=== PATIENT | female | born 1965 | race Caucasian/White ===

== ENCOUNTER 2020-08-01 07:52 | Outpatient (CLI) | payer BC, SELFPAY ==
--- NOTE | ~2020-08-01 | XR_ITS ---
EXAMINATION: XR foot RT min 3V EXAM DATE: 08/01/2020 08:13 INDICATION: Right foot pain, dropped can on foot. Possible ganglion cyst. TECHNIQUE: Right foot weightbearing dorsoplantar, lateral and oblique projections obtained and revie wed. Comparison is made to prior examination from 02/21/2011. FINDINGS: Right metatarsal bones unremarkable. There are small posterior and inferior calcaneal spu rs. There are sequela from old 5th metatarsal avulsion injury or injuries. There are no bony erosions identified. The joint spaces are uniform. There are no acute fractures or dislocations identified. There is no subcutaneous gas. The soft tissue is unremarkable. There are no radiopaque foreign bod ies. IMPRESSION: Small right calcaneal spurs. Reviewed, dictated and finalized at location A.
== END 2020-08-01 07:53 | disposition home or self-care (01) ==
LOC: CHSIMG 07:55
PROVIDERS: PCP Internal Medicine; Visit Provider Orthopaedic Surgery
DX: M79.671 Pain in right foot (principal)
CPT/HCPCS: 73630

== ENCOUNTER → 2020-08-22 00:12 | Outpatient (CLI) | payer BC, SELFPAY ==
[2020-08-22 19:28] LABS: SARS-CoV-2 RNA PCR Negative
== END ==
PROVIDERS: PCP Internal Medicine; Visit Provider Orthopaedic Surgery
DX: Z01.812 Encounter for preprocedural laboratory examination (principal); Z20.822 Contact with and (suspected) exposure to COVID-19
CPT/HCPCS: C9803; U0003; U0005

== ENCOUNTER 2020-08-22 08:47 | Outpatient (CLI) | payer BC, SELFPAY ==
--- NOTE | 2020-08-22 08:55 | ECG_ITS ---
Measurements Intervals [place] Rate: 70 P: 16 UT: 227 QRS: 13 QRSD: 105 T: 70 QT: 365 QTc: 396 Interpretive Statements SINUS RHYTHM WITH FIRST DEGREE AV BLOCK ANTERIOR INFARCT, AGE INDETERMINATE CONSIDER INFERIOR INFARCT, AGE INDETERMINATE BORDERLINE ST-T WAVE ABNORMALITY- HIGH LATERAL LEADS ABNORMAL ECG Electronically Signed On 08-22-2020 9:05:11 CDT by Ryne Stovall D.O.
[2020-08-22 09:32] LABS: Anion Gap 5 mmol/L (8-16); Blood Urea Nitrogen 16 mg/dL (7-17); Calcium 9.3 mg/dL (8.4-10.2); Carbon Dioxide 34 mmol/L (22-30); Chloride 99 mmol/L (98-107); Estimated Glomerular Filt Rate > 60; Glucose 173 mg/dL (65-105); Potassium 3.8 mmol/L (3.4-5.0); Sodium 138 mmol/L (137-145)
== END 2020-08-22 08:48 | disposition home or self-care (01) ==
LOC: ANHSURGERY 08:52
PROVIDERS: Anesthesiology; PCP Internal Medicine; Visit Provider Orthopaedic Surgery
DX: Z01.818 Encounter for other preprocedural examination (principal); I44.0 Atrioventricular block, first degree; I25.5 Ischemic cardiomyopathy; I10 Essential (primary) hypertension
CPT/HCPCS: 36415; 80048; 93005

== ENCOUNTER 2020-08-25 00:43 | Day surgery (SDC) | payer BC, SELFPAY ==
[2020-08-09 13:34] VITALS: BMI 44.8
--- NOTE | 2020-08-25 07:15 | WPDHPUPDATE1 ---
History and Physical Update Update Date/Time: 08/25/20 07:15 History and Physical has been reviewed, including an updated exam of the patient. There are NO changes in the patient's condition. Covid test negative Risks, benefits, and alternatives have been discussed and questions answered. Patient agrees to proceed with procedure.
[2020-08-25 09:04] VITALS: BP 150/86; PULSE 78; RESP 18; TEMP 36.3; O2SAT 98
[2020-08-25] MEDS: LACTATED RINGERS 1,000 ML 30 ML IV CONT (09:25)
[2020-08-25] MEDS: ACETAMINOPHEN 500 MG TABLET 1000 MG PO (09:31)
[2020-08-25] MEDS: KETOROLAC 15 MG/ML VIAL (*BKC) IV PUSH (09:31)
[2020-08-25 09:35] LABS: Glucose Point of Care 135 (65-105)
--- NOTE | 2020-08-25 09:53 | WPDANESEPP ---
Anes - Eval Pre Procedure Procedure: Operation Date: 08/25/20 10:45 Proposed Procedures p Excision Right Second Toe Mucoid Cyst - Elias Valencia MD Date/Time: 08/25/20 09:53 Pre Op Diagnosis: right 2nd toe mucoid cyst Patient Data Age: 55 Gender: F Height: 1.83 m Weight: 144 kg Last Vital Signs Temp 36.3 C L 08/25/20 09:04 Pulse 78 08/25/20 09:04 Resp 18 08/25/20 09:04 BP 150/86 H 08/25/20 09:04 Pulse Ox 98 08/25/20 09:04 Allergies Allergy/AdvReac Type Severity Reaction Status Date / Time cefaclor Allergy Unknown Unknown Verified 08/25/20 09:34 loratadine [From Claritin-D] Allergy Unknown hives Verified 08/25/20 09:34 pseudoephedrine Allergy Unknown hives Verified 08/25/20 09:34 [From Claritin-D] Home Medications Medication Instructions Recorded Confirmed Type duloxetine 30 mg capsule,delayed 60 mg PO QAM 08/02/20 08/25/20 History release hydrochlorothiazide 25 mg tablet 25 mg PO DAILY 08/02/20 08/25/20 History losartan 100 mg tablet 100 mg PO DAILY 08/02/20 08/25/20 History metformin 500 mg tablet 500 mg PO BID 08/02/20 08/25/20 History duloxetine 30 mg PO HS 08/09/20 08/25/20 History methylphenidate HCl 10 mg PO DAILY 08/09/20 08/25/20 History Laboratory Tests 08/25/20 09:29 POC Capillary Glucose 135 mg/dl H mg/dl (65-105) Patient hx anesthesia problems: none Family hx anesthesia problems: none PMFSH Past Medical History Medical History Depression Diabetes type 2, controlled Hearing loss Hypertension Mucoid cyst of joint Wears glasses Family History Family History Other Diabetes mellitus Hypertension Social History Social History Smoking status: Never smoker Second hand tobacco smoke exposure: No Alcohol intake: never Substance use: never Substance use type: does not use Living arrangements: with family Gender identity (if verbalized by the patient): Female Spiritual care concerns: No Exam Day of Procedure 08/25/20 09:53 Patient weight: morbidly obese Heart: regular rate and rhythm Lungs: normal air movement Airway: Mallampati scale class III Neurological: alert and oriented Other findings: DELFINA- CPAP MO
--- NOTE | 2020-08-25 09:59 | WPDANESEFPP ---
Anes - Eval Final PreProcedure Day of Procedure 08/25/20 09:59 Patient weight: morbidly obese Heart: regular rate and rhythm Lungs: clear to auscultation Airway: Mallampati scale class II Neurological: alert and oriented Last oral intake: >/= 8 hours ASA classification: III Emergent: no Anesthetic plan: proceed Anesthesia type and monitoring: general LMA and standard monitoring Informed Consent: The patient's anesthetic plan and its attendant risks and benefits were discussed with the patient/family/POA. Questions were solicited and answers provided to the satisfaction of the patient/family/POA.
[2020-08-25] MEDS: CLINDAMYCIN 900 MG/D5W 50 ML 900 MG/50 ML PIGGYBACK 50 MG IVPB (10:04)
--- NOTE | 2020-08-25 10:04 | P.OP_ITS ---
Procedure Note - Detailed Date of procedure: 08/25/20 Pre-op diagnosis: right 2nd toe mucoid cyst Post-op diagnosis: same Procedure performed: Right 2nd toe excision of mucous cyst and debridement of interphalangeal joint. Description of procedure: Indications: Patient is a 55-year-old woman with a right 2nd toe mucous cyst. She has pain associated with the cyst. No improvement with local care. Presents for operative removal. What was done: Patient identified in the preoperative holding. Informed consent given. Operative extremity marked. Patient received intravenous antibiotics. Patient brought to the operating room where underwent IV sedation by anesthesia team. Positioned supine on operating room table. Time-out performed confirming the patient, site of the surgery and the plan. Right foot prepped draped usual sterile surgical fashion using a ChloraPrep skin solution. Local anesthetic at the 2nd toe with 0.5% Marcaine plain. Longitudinal incision made over the medial aspect of the distal interphalangeal joint of the 2nd toe as the cyst was more to the medial side of the nail fold. Hemostasis controlled electrocautery. The interval between the extensor tendon and the collateral ligament was identified and the capsule was incised in this interval over the distal interphalangeal joint. Osteophyte from the distal phalanx identified and removed with a rongeur. Cystic material was identified and following this we found the cyst sac. This was opened up and debrided. The cyst stalk was then closed with electrocautery. Thorough irrigation of the wound. Skin was closed with 4 O nylon interrupted suture. Sterile dressing applied. The patient was then woken from anesthesia, extubated and taken to the recovery room in stable condition. All sponge, needle, instrument counts were correct at the end of the case. Implants: None Anesthesia: MAC and local Surgeon: Elias Valencia MD Speech And Language Specialist: 1st promotional advertising assistant Estimated blood loss (mL): 5 Tourniquet time (min): 20 Drains: No Packing: No Pathology: none sent Complications: None Condition: stable Disposition: PACU
[2020-08-25] MEDS: BUPIVACAINE HCL 0.5% PF 30 ML VIAL INFILTRATE (10:28)
[2020-08-25 10:45] VITALS: BP 139/69; PULSE 92; RESP 16; O2SAT 93
[2020-08-25 11:30] VITALS: BP 131/64; PULSE 81; RESP 16; O2SAT 100
== END 2020-08-25 12:05 | disposition home or self-care (01) ==
PROVIDERS: PCP Internal Medicine; Visit Provider Orthopaedic Surgery
PROC: (CPT 28108; principal; 2020-08-25 10:45)
DX: M25.871 Other specified joint disorders, right ankle and foot (principal); M25.774 Osteophyte, right foot; E11.9 Type 2 diabetes mellitus without complications; I10 Essential (primary) hypertension; F32.9 Major depressive disorder, single episode, unspecified; Z79.84 Long term (current) use of oral hypoglycemic drugs; E66.01 Morbid (severe) obesity due to excess calories; Z68.41 Body mass index [BMI] 40.0-44.9, adult
CPT/HCPCS: 28108; 28090; 82948; A9270; J1885; J2250; J2405; J2704; J3010; J7120

== ENCOUNTER 2021-05-02 00:43 | Day surgery (SDC) | payer BC, SELFPAY ==
[2021-04-21 14:09] VITALS: BMI 44.5
[2021-05-02 07:42] VITALS: BP 146/88; PULSE 113; RESP 20; TEMP 37.3; O2SAT 97
[2021-05-02] MEDS: LACTATED RINGERS 1,000 ML 150 ML IV CONT (07:46)
[2021-05-02 07:47] LABS: Glucose Point of Care 253 mg/dl (65-105)
--- NOTE | 2021-05-02 08:24 | P.PNAN_ITS ---
Anes - Initial Pre Proc Eval Procedure: Operation Date: 05/02/21 09:00 Proposed Procedures p Screening Colonoscopy - Niles Khan MD Date/Time: 05/02/21 08:24 Surgeon: Niles Khan MD Pre Op Diagnosis: hx of polyps Patient Data Age: 56 Gender: F Height: 1.83 m Weight: 143.6 kg Last Vital Signs Temp 99.1 F 05/02/21 07:42 Pulse 113 H 05/02/21 07:42 Resp 20 05/02/21 07:42 BP 146/88 H 05/02/21 07:42 Pulse Ox 97 05/02/21 07:42 Allergies Allergy/AdvReac Type Severity Reaction Status Date / Time cefaclor Allergy Unknown Unknown Verified 05/02/21 07:41 loratadine [From Claritin-D] Allergy Unknown hives Verified 05/02/21 07:41 pseudoephedrine Allergy Unknown hives Verified 05/02/21 07:41 [From Claritin-D] Home Medications Medication Instructions Recorded Confirmed Type duloxetine 30 mg capsule,delayed 60 mg PO QAM 08/02/20 05/02/21 History release hydrochlorothiazide 25 mg tablet 25 mg PO DAILY 08/02/20 05/02/21 History losartan 100 mg tablet 100 mg PO DAILY 08/02/20 05/02/21 History metformin 500 mg tablet 1,000 mg PO BID 08/02/20 05/02/21 History methylphenidate HCl 10 mg PO DAILY 08/09/20 05/02/21 History Laboratory Tests 05/02/21 07:45 POC Capillary Glucose 253 mg/dl H mg/dl (65-105) Patient hx anesthesia problems: none Family hx anesthesia problems: none Results Review: All pre-operative results and documents have been reviewed as part of the pre-operative evaluation. [facility] Past Medical History Medical History Depression Diabetes type 2, controlled Hearing loss Hypertension Mucoid cyst of joint Wears glasses Family History Family History Other Diabetes mellitus Hypertension Social History Social History Smoking status: Never smoker Second hand tobacco smoke exposure: No Alcohol intake: never Substance use: never Substance use type: does not use Gender identity (if verbalized by the patient): Female Spiritual care concerns: No Anes - Eval Final PreProcedure Day of Procedure 05/02/21 08:24 Patient weight: morbidly obese Heart: regular rate and rhythm Lungs: clear to auscultation Airway: Mallampati scale class II Neurological: alert and oriented Last oral intake: >/= 8 hours ASA classification: III Emergent: no Anesthetic plan: proceed Anesthesia type and monitoring: general GIVS and standard monitoring Results Review: All pre-operative results and documents have been reviewed as part of the pre-operative evaluation. Informed Consent: The patient's anesthetic plan and its attendant risks and benefits were discussed with the patient/family/POA. Questions were solicited and answers provided to the satisfaction of the patient/family/POA.
--- NOTE | 2021-05-02 08:27 | PM.HPGS ---
History of Present Illness History of Present Illness Consent: Risks, benefits, and alternatives have been discussed and questions answered. Patient agrees to proceed with procedure. Chief complaint: hx of polyps Narrative: Kaci Roberts is a 56 year old female with colon polyp 3 years ago. Review of Systems Constitutional: Constitutional: Denies headache(s) and Denies weakness Eyes: Eyes: Denies blurry vision ENT: Reports Normal hearing present, Denies headache(s) and Denies neck pain Cardiovascular: Cardiovascular: Denies chest pain and Denies dyspnea Respiratory: Respiratory: Denies dyspnea Gastrointestinal: Gastrointestinal: Reports no additional gastrointestinal complaints Genitourinary: Genitourinary: Denies dysuria Musculoskeletal: Musculoskeletal: Denies neck pain Integumentary/Breasts: Skin/Breast: Denies dry skin Neurologic: Reports Normal hearing present, Denies headache(s) and Denies weakness Psychiatric: Psychiatric: Denies anxiety Endocrine: Endocrine: Denies change in body appearance Hematologic/Lymphatic: Hematologic/Lymphatic: Denies easy bleeding Allergic/Immunologic: Allergic/Immunologic: Denies urticaria PMFSH Past Medical History Medical History (Updated 05/02/21 @ 08:28 by Niles Khan MD) Adenomatous colon polyp Depression Diabetes type 2, controlled Hearing loss Hypertension Mucoid cyst of joint Wears glasses Family History Family History Other Diabetes mellitus Hypertension Social History Social History Smoking status: Never smoker Second hand tobacco smoke exposure: No Alcohol intake: never Substance use: never Substance use type: does not use Gender identity (if verbalized by the patient): Female Spiritual care concerns: No Meds Home Medications and Allergies Home Medications Medication Instructions Recorded Confirmed Type duloxetine 30 mg capsule,delayed 60 mg PO QAM 08/02/20 05/02/21 History release hydrochlorothiazide 25 mg tablet 25 mg PO DAILY 08/02/20 05/02/21 History losartan 100 mg tablet 100 mg PO DAILY 08/02/20 05/02/21 History metformin 500 mg tablet 1,000 mg PO BID 08/02/20 05/02/21 History methylphenidate HCl 10 mg PO DAILY 08/09/20 05/02/21 History Allergies Allergy/AdvReac Type Severity Reaction Status Date / Time cefaclor Allergy Unknown Unknown Verified 05/02/21 07:41 loratadine [From Claritin-D] Allergy Unknown hives Verified 05/02/21 07:41 pseudoephedrine Allergy Unknown hives Verified 05/02/21 07:41 [From Claritin-D] Vital Signs Vital Signs - 24 hr 05/02/21 07:42 Temperature 99.1 F Pulse Rate 113 H Respiratory Rate 20 Blood Pressure 146/88 H Pulse Oximetry 97 Exam Const: General: comfortable and no acute distress HENMT: General nose exam: Normal nares present Eyes: General: appearance normal, both eyes and all related structures Neck: Neck: no JVD Resp: Auscultation: clear to auscultation bilaterally Cardio: Rate: regular rate Rhythm: regular rhythm GI: Inspection: non-distended GI Palp: Yes Soft to palpation Skin: General skin exam: normal color Neuro: General: gait normal Speech: normal speech Extrem: General: normal to inspection Psych: Mental Status: mental status grossly normal Assessment and Plan Assessment and plan (1) Adenomatous colon polyp: Code(s): D12.6 - Benign neoplasm of colon, unspecified Status: Acute Assessment and Plan: colonoscopy
[2021-05-02 08:50] VITALS: BP 135/82; PULSE 100; RESP 25; O2SAT 95
[2021-05-02 09:00] VITALS: BP 135/84; PULSE 102; RESP 23; O2SAT 96
[2021-05-02 09:10] VITALS: BP 146/85; PULSE 88; RESP 22; O2SAT 97
== END 2021-05-02 09:14 | disposition home or self-care (01) ==
PROVIDERS: PCP Internal Medicine; Visit Provider Internal Medicine Gastroenterology
PROC: 0DJD8ZZ Inspection of Lower Intestinal Tract, Via Natural or Artificial Opening Endoscopic (ICD-10-PCS; CPT 45378; principal; 2021-05-02 09:00)
DX: Z12.11 Encounter for screening for malignant neoplasm of colon (principal); Z86.010 Personal history of colon polyps; K64.8 Other hemorrhoids; F32.9 Major depressive disorder, single episode, unspecified; E11.9 Type 2 diabetes mellitus without complications; I10 Essential (primary) hypertension; H91.90 Unspecified hearing loss, unspecified ear; Z79.84 Long term (current) use of oral hypoglycemic drugs; E66.01 Morbid (severe) obesity due to excess calories; Z68.41 Body mass index [BMI] 40.0-44.9, adult
CPT/HCPCS: 45378; 82948; J2704; J7120

== ENCOUNTER 2023-10-21 08:16 | Outpatient (CLI) | payer BC, SELFPAY ==
--- NOTE | ~2023-10-21 | XR_ITS ---
EXAMINATION: XR ankle RT min 3V DATE: 10/21/2023 08:36 INDICATION: Right ankle pain. TECHNIQUE: 4 views of right ankle were obtained. COMPARISON: Right foot radiographs 08/01/2020 FINDINGS: Bone alignment is normal. There is heterotopic ossification distal to medial and lateral ma lleoli. Joint spaces are normal. There are enthesophytes at the posterior and plantar aspects of calc aneal tuberosity. Ankle soft tissue swelling is noted. IMPRESSION: 1. 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 Acute avulsion fracture cannot be excluded. Reviewed, dictated and finalized at location A. IMPRESSION: 1. Heterotopic ossification distal to medial and lateral malleoli, at least nathan e of which is chronic. Acute avulsion fracture cannot be excluded.
== END 2023-10-21 08:17 | disposition home or self-care (01) ==
PROVIDERS: PCP Internal Medicine; Visit Provider Orthopaedic Surgery
DX: M25.571 Pain in right ankle and joints of right foot (principal); M89.9 Disorder of bone, unspecified
CPT/HCPCS: 73610

== ENCOUNTER 2024-02-12 15:31 | Outpatient (RCR) | payer BC, SELFPAY ==
--- NOTE | 2024-02-12 16:43 | OPREHPOC ---
Outpatient Therapy Plan of Care This is a Multidisciplinary Plan of Care that may contain components documented by all disciplines (PT, OT, and ST.) PT Problem 1 PT Problem #1 Knowledge Deficit PT Goal 1 Goal / Goal Update The patient will be independent in a home exercise program to continue after discharge from formal PT. Target Visit 4 PT Problem 2 PT Problem #2 Pain PT Goal 1 Goal / Goal Update The patient will report no greater than 2/10 right knee pain with walking for up to 30 minutes to complete grocery shopping. Target Visit 10 PT Problem 3 PT Problem #3 Impaired Functional Mobil PT Goal 1 Goal / Goal Update The patient will demonstrate 10% or less self perceived disability per the LEFS questionnaire. The patient will be able to complete 1,000 feet during the 6 minute walk test without right knee pain. Target Visit 10 PT Problem 4 PT Problem #4 Impaired Strength PT Goal 1 Goal / Goal Update The patient will demonstrate at least 4/5 right knee and hip strength.
--- NOTE | 2024-02-12 16:43 | PTOPEVAL1 ---
Assessment and note entered by Luci Marin, PT Evaluation Information Assessment Status Evaluation ICD-10 Condition Codes (PT) M25.561 Onset 02/11/24 Subjective Information Kaci Roberts reports she fell in September 2023 and fractured her ankle and strained her knee. 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 She feels being on concrete and standing has made her pain return. She feels pain on the inner knee that comes and goes. She notes pain with initial standing after prolonged sitting and getting out of bed as well as walking for a long period. She feels pain after 10 minutes of walking . When she went to doctor, she had x-rays that showed osteoarthritis. Dr. Trimble referred her to PT and recommended she takes Aleve. She will get a cortisone injection if pain does not improve. Reported Pain Level Pain Score 2: Self Report Assessment PT Clinical Summary Kaci Roberts presents with right knee pain that started after a fall in September 2023. 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 She has difficulty with initial standing after laying or prolonged sitting as well as walking more than 10 minutes. She objectively demonstrates tenderness along the medial patella border, right > left genu valgum, bilateral lateral patella tracking, and decreased right knee and hip strength. She will benefit from skilled PT to address these limitations. Plan of Care Interventions Electrical Stimulation,Hot Pack/Cold Pack, Intermittent Compression,Manual Therapy,Neuro Re- education,Patient/Caregiver Educati,Therapeutic Activities,Therapeutic Exercise PT Services Indicated Yes Treatment Frequency and 2 times a week for 10 visits Duration These treatments will address the objective and functional deficits as defined above. The patient will be advanced safely and appropriately in order for the patient to progress towards his/her prior level of function. Additional exercises will be introduced and as well as a comprehensive home exercise program upon discharge, if needed, ?to ensure carryover of functional gains achieved in the clinic. This treatment plan has been reviewed and agreement upon by the patient.
--- NOTE | 2024-03-15 14:21 | OPREHPOC ---
Outpatient Therapy Plan of Care This is a Multidisciplinary Plan of Care that may contain components documented by all disciplines (PT, OT, and ST.) PT Problem 1 PT Problem #1 Knowledge Deficit PT Goal 1 Goal / Goal Update The patient will be independent in a home exercise program to continue after discharge from formal PT. Target Visit 4 Progress Met PT Problem 2 PT Problem #2 Pain PT Goal 1 Goal / Goal Update The patient will report no greater than 2/10 right knee pain with walking for up to 30 minutes to complete grocery shopping. Target Visit 14 Progress Not Met PT Problem 3 PT Problem #3 Impaired Functional Mobil PT Goal 1 Goal / Goal Update The patient will demonstrate 10% or less self perceived disability per the LEFS questionnaire. The patient will be able to complete 1,000 feet during the 6 minute walk test without right knee pain. met for distance Target Visit 14 Progress Not Met PT Problem 4 PT Problem #4 Impaired Strength PT Goal 1 Goal / Goal Update The patient will demonstrate at least 4/5 right knee and hip strength. met The patient will demonstrate 4+/5 or better R hip strength overall. The patient will demonstrate 5/5 R knee strength Target Visit 14 Progress Partially Met
--- NOTE | 2024-03-15 14:21 | PTOPREEVAL ---
Assessment and note entered by JT File, PT Evaluation Information Assessment Status Re-evaluation ICD-10 Condition Codes (PT) M25.561 Onset 02/11/24 Subjective Information kalen reports she was doing much better for a while, but just recently began having pain again in the R knee. she reports she is limited in ambulation for increased time/distance, and limited on steps. she reports her return of pain and symptoms leads her to want to continue skilled PT. Reported Pain Level Pain Score 3: Self Report Assessment PT Clinical Summary mrs. alcantar presents to skilled PT services for her 10th skilled PT visit. she has been improving with skilled PT, but recently had a flare up of pain and symptoms in the R knee. she has made progress towards goals, but due to her recent flare up, has not achieved all goals yet. she would benefit from continued skilled PT to address her flare up of symptoms to achieve all goals and return to prior level functional activity performance/ quality of life. Plan of Care Interventions Electrical Stimulation,Hot Pack/Cold Pack, Intermittent Compression,Manual Therapy,Neuro Re- education,Patient/Caregiver Educati,Therapeutic Activities,Therapeutic Exercise PT Services Indicated Yes Treatment Frequency and continue skilled PT 2x weekly for 4 more visits Duration These treatments will address the objective and functional deficits as defined above. The patient will be advanced safely and appropriately in order for the patient to progress towards his/her prior level of function. Additional exercises will be introduced and as well as a comprehensive home exercise program upon discharge, if needed, ?to ensure carryover of functional gains achieved in the clinic. This treatment plan has been reviewed and agreement upon by the patient.
--- NOTE | 2024-03-25 16:02 | OPREHPOC ---
Outpatient Therapy Plan of Care This is a Multidisciplinary Plan of Care that may contain components documented by all disciplines (PT, OT, and ST.) PT Problem 1 PT Problem #1 Knowledge Deficit PT Goal 1 Goal / Goal Update The patient will be independent in a home exercise program to continue after discharge from formal PT. Target Visit 4 Progress Met PT Problem 2 PT Problem #2 Pain PT Goal 1 Goal / Goal Update The patient will report no greater than 2/10 right knee pain with walking for up to 30 minutes to complete grocery shopping. Target Visit 14 Progress Met PT Problem 3 PT Problem #3 Impaired Functional Mobil PT Goal 1 Goal / Goal Update The patient will demonstrate 10% or less self perceived disability per the LEFS questionnaire. The patient will be able to complete 1,000 feet during the 6 minute walk test without right knee pain. met for distance Target Visit 14 Progress Met PT Problem 4 PT Problem #4 Impaired Strength PT Goal 1 Goal / Goal Update The patient will demonstrate at least 4/5 right knee and hip strength. met The patient will demonstrate 4+/5 or better R hip strength overall. The patient will demonstrate 5/5 R knee strength Target Visit 14 Progress Met
--- NOTE | 2024-03-25 16:02 | PTOPDC ---
Assessment and note entered by Luci Marin, PT Evaluation Information Assessment Status Discharge ICD-10 Condition Codes (PT) M25.561 Onset 02/11/24 Subjective Information Kaci Roberts reports that her right knee is doing better. She is able to perform all daily activities including grocery shopping, taking stairs reciprocally, and sit and standing as long as she needs for daily activities. She has not been having right knee or ankle pain recently. Reported Pain Level Pain Score 0: Self Report Assessment PT Clinical Summary Kaci Roberts has completed 14 skilled PT visits for right knee pain. She is reporting her right knee is doing better and has not given her very much pain. She has been able to return to walking longer distances to go grocery shopping, taking stairs reciprocally, and sit and stand for as long as she needs to for daily activities. She objectively demonstrates improved right knee AROM, improved right knee and hip strength, improved endurance, and improved gait. She will be discharged from skilled PT. Plan of Care PT Services Indicated No
== END 2024-03-25 16:15 | disposition home or self-care (01) ==
LOC: CHSPT 15:31
PROVIDERS: Visit Provider Orthopaedic Surgery
DX: S80.01XA Contusion of right knee, initial encounter (principal); M17.11 Unilateral primary osteoarthritis, right knee
CPT/HCPCS: 97110; 97112; 97150; 97161; 97750

== ENCOUNTER 2024-05-03 10:22 | Emergency (ER) | payer BC, SELFPAY ==
--- NOTE | ~2024-05-03 | XR_ITS ---
Left Knee Technique: AP, lateral, and oblique views were obtained. Clinical History: Pain Findings: No fracture or dislocation is seen. Osseous alignment is anatomic. Joint there is moderate degenerative change throughout the knee, probably worst at the patellofemoral compartment. Soft tissu es are unremarkable. No joint effusion is seen. Impression: Degenerative changes, as above. No acute fracture or dislocation. Reviewed, dictated and finalized at location . LE COVERER Impression: Degenerative changes, as above. No acute fracture or dislocation.
[2024-05-03 10:22] VITALS: BP 190/67; PULSE 109; RESP 19; TEMP 36.4; O2SAT 98
--- NOTE | 2024-05-03 10:49 | ED_ITS ---
HPI - Extremity Injury (Lower) General Chief Complaint: Extremity Injury, Lower Stated Complaint: fall Time Seen by Provider: 05/03/24 10:45 Source: patient Mode of arrival: ambulatory Limitations: no limitations History of Present Illness HPI Narrative: patient drove herself to the emergency room complaining of left knee pain anteriorly, lost balance and landed on the left knee ground level fall last night. Denies other injuries. Related Data Home Medications ?Medication ?Instructions ?Recorded ?Confirmed ?Last Taken ?Type losartan 100 mg tablet 50 mg PO DAILY 08/02/20 10/21/23 Unknown History atomoxetine 40 mg capsule 40 mg PO DAILY 05/03/24 Unknown History empagliflozin 10 mg tablet 10 mg PO DAILY 05/03/24 Unknown History (Jardiance) mirabegron 50 mg tablet,extended 50 mg PO DAILY 05/03/24 Unknown History release 24 hr (Myrbetriq) potassium chloride 10 mEq 10 meq PO DAILY 05/03/24 Unknown History tablet,extended release Allergies Allergy/AdvReac Type Severity Reaction Status Date / Time atorvastatin Allergy Intermediate Unknown Verified 05/03/24 10:44 cefaclor Allergy Unknown Unknown Verified 02/11/24 09:45 loratadine (From Claritin-D) Allergy Unknown hives Verified 02/11/24 09:45 pseudoephedrine (From Allergy Unknown hives Verified 02/11/24 09:45 Claritin-D) Review of Systems Review of Systems: All systems reviewed & are unremarkable except as noted in HPI and below PMFSH Past Medical History Medical History Contusion of right knee Avulsion fracture of lateral malleolus of right fibula Adenomatous colon polyp Depression Diabetes type 2, controlled Hypertension Hearing loss Wears glasses Mucoid cyst of joint Family History Family History Other Diabetes mellitus Hypertension Social History Social History Smoking status: Never smoker Second hand tobacco smoke exposure: No Alcohol intake: never Substance use: never Substance use type: does not use Living arrangements: with family Gender identity (if verbalized by the patient): Female Spiritual care concerns: No Exam Narrative: General appearance: Well-developed, well-nourished Skin: Normal color Head: Normocephalic, nontraumatic Eyes: Clear conjunctiva ENT: Oropharynx normal, ears normal, nose normal Neck: Supple, nontender Chest and respiratory: Airway patent, no respiratory distress, no accessory muscle use Heart: Regular rate/rhythm Vascular: Normal peripheral pulses, normal capillary refill. 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 is normal as tested, no gross motor deficit Course Vital Signs Vital signs: Vital Signs Temperature 36.4 C 05/03/24 10:22 Pulse Rate 109 H 05/03/24 10:22 Respiratory Rate 19 05/03/24 10:22 Blood Pressure 190/67 H 05/03/24 10:22 Pulse Oximetry 98 05/03/24 10:22 Oxygen Delivery Room Air 05/03/24 10:22 Temperature 36.3 C L 05/03/24 12:11 Pulse Rate 89 05/03/24 12:15 Respiratory Rate 18 05/03/24 12:11 Blood Pressure 173/73 H 05/03/24 12:15 Pulse Oximetry 97 05/03/24 12:11 Oxygen Delivery Room Air 05/03/24 12:11 MDM - Extremity Injury (Lower) MDM Narrative Medical decision making narrative: differential diagnosis include the patellar fracture, contusion Imaging Data Radiologist's impression: Impressions Knee X-Ray 05/03/24 11:21 Impression: Degenerative changes, as above. No acute fracture or dislocation. Critical Care Time Critical Care Time Critical Care Time: No Discharge Plan Discharge Clinical Impression: Contusion of knee, left, Hypertension Patient Disposition: Home, Self-Care Condition: Stable Instructions: Contusion in Adults (ED), Hypertension (ED) Additional Instructions: Return if symptoms are worsening , call your family physician for appointment, take Tylenol , ibuprofen as as needed for aches and pain, continue home medications. Keep leg elevated, topical Neosporin Patient Language: Filipino Prescriptions: No Action potassium chloride 10 mEq tablet extended release 10 meq PO DAILY mirabegron [Myrbetriq] 50 mg tablet extended release 24 hr 50 mg PO DAILY Jardiance 10 mg tablet 10 mg PO DAILY atomoxetine 40 mg capsule 40 mg PO DAILY losartan 100 mg tablet 50 mg PO DAILY Follow-up/Referrals: UNKNOWN,DOCTOR [Non-Staff] - Stand Alone Forms: Work/School Release IP
[2024-05-03 11:40] VITALS: BP 190/89; PULSE 96; RESP 18; TEMP 36.7; O2SAT 96
[2024-05-03] MEDS: cloNIDine HCL 0.1 MG TABLET PO (11:43)
[2024-05-03 12:11] VITALS: BP 173/73; PULSE 89; RESP 18; TEMP 36.3; O2SAT 97
[2024-05-03 12:15] VITALS: BP 173/73; PULSE 89
--- OUTSIDE RECORDS SUMMARY | 2024-05-07 21:59 | XMS_ITS | Data Portability ---
Author Organization [facility], [address] [facility] ([place]) Address [address] 4th [place] [address] Care Team Providers Care Supervisor Dry Paste Name Role Phone HYACINTH MOY Primary Care Provider [phone] MITCHEL DELA CRUZ Urologist MONIKA RICHARDS OTHER Assessment Encounter Date Assessment Date Assessment LastModified by Organization Details LastModified Time 12/12/2023 12/12/2023 Probable viral illness with sinusitis and facial tenderness and pain. We will start her on doxycycline antibiotic therapy. We talked about the risk and benefits. She is to gargle salt water get plenty of fluids and rest. She is to notify me if her symptoms or not improving. ADHD. Continue Strattera which is working well for her. I will see her back in 3 months for follow-up on the Strattera. She agrees with this plan. She knows to call with any worsening symptoms. Total time 20 minutes [email or web address] Not available 12/15/2023 22:09:25 12/20/2023 12/20/2023 1. COVID-19. She has had it for about 2 days. Will start her on she is to call or go to the emergency department if things get worse. 2. Hypertension not well-controlled . Increase losartan to 100 mg. She will return in about a month for thorough physical for this time of year. She agrees with this plan. Total time 15 minutes Not available 12/22/2023 13:57:21 01/15/2024 01/15/2024 1. Right knee pain. She fell in September and did not get it x-rayed. Will get an x-ray today to make sure there is no tibial plateau fracture. 2. Type 2 diabetes. Will check hemoglobin A1c today. She has regained 40 pounds that she has lost. We were able to stop her diabetes medication with the weight loss she had had. 3. Urinary incontinence and urge incontinence. Start oxybutynin ER grams. We talked about the risk and benefits of this including dry mouth. 4. Essential hypertension. Resume losartan but at a lower dose of 50 mg. 5. She is due for routine screening mammogram and an order is sent to [facility] 6. ADHD. Continue Strattera which is working well. I will see her back in 3 months or as needed for follow-up. She knows to call with any concerns. She agrees with this plan. Total 30 minutes [email or web address] Not available 01/15/2024 23:24:23 03/24/2024 03/24/2024 Ms. Roberts was seen for her 6-month hearing aid check. She wears 2 [employer] Lumity rechargeable hearing devices. I removed 3.3 uL of moisture from both hearing aids. I changed her cap domes, wax traps, and retention lines. Rec: 1. Return in six months for her next check. 2. Both hearing aids are currently under warranty. matt Not available 03/24/2024 17:37:43 03/30/2024 03/30/2024 1. ADHD. Continue Strattera which is working well without any side effects. I will see her back in 3 months for follow-up on this. 2. We did review her labs for diabetes. She would like to get back on Jardiance which helped her lose weight. Will start at 10 mg 1 tablet daily and then we can increase it as she tolerates as well. 3. Right knee pain. She continues to work on conservative measures for this. I did suggest she could try some diclofenac gel and gave her the name of this. 4. Obesity. She has started to work on weight loss and has regained some of the weight. I encouraged her to get back on track with exercise program. I recommended that she read the book called eat to live by Dr. Luis Landers. I will see her back in 3 months. She agrees with this plan. Total amount of time 20 minutes Not available 03/31/2024 21:16:47 Plan of Treatment Reminders Order Date Submit Date Provider Last Modified By Organization Details Last Modified Time Details Appointments [facility] Patient 15.EST 2024 10:30A M Dr. Hyacinth Lopez Not available Not available Not available Carlos swann Patient 30.EST 2024 10:30A M Vero Lopes Not available Not available Not available Lab hemoglob in A1C, fingerst ick 2023 024 [facility], [address] [place] [address], [address], 01/15/2024 17:25:34 Referral None recorded . Procedures None recorded . Surgeries None recorded . Imaging XR, knee, 3 view - right knee 2023 [facility] - Radiology Scheduling, [address] [place], [address], 01/23/2024 11:43:50 MAMMO, screenin g, digital, bilatera l 2023 [facility]7 [facility] Radiology Scheduling, [address] [place], [address], 03/13/2024 14:56:35 Medication Orders doxycycl ine monohydr ate 100 mg capsule 2023 024 [facility]94507, [address] [place], [place], [id number], 01/15/2024 16:51:21 atomoxet ine 40 mg capsule 2023 024 [facility]20967, [address] [place], [place], [id number], 12/12/2023 17:52:13 losartan 100 mg tablet 2023 024 [facility] #47498, [address] [place], [place], [id number], 01/15/2024 17:16:22 Paxlovid 300 mg (150 mg x 2)-100 mg tablets in a dose pack 2023 [facility] #69949, [address] [place], [place], [id number], 01/15/2024 16:51:27 oxybutyn in chloride ER 5 mg tablet,e xtended release 24 hr 2023 [facility] #90040, [address] [place], [place], [id number], 03/30/2024 16:45:55 losartan 50 mg tablet 2023 024 [facility] #04749, [address] [place], [place], [id number], 01/15/2024 17:15:56 Jardianc e 10 mg tablet 2023 024 [facility] #67045, [address] [place], [place], [id number], 03/30/2024 16:59:42 Patient TargetsNo targets recorded. Patient InstructionsNo instructions recorded. Reason for Referral None Reported. Results Created Date Observation Date Name Description Value Unit Range Abnormal Flag Note LastModifiedBy Organization Detail LastModifiedTime 12/12/19 24 12/12/2023 SARS CoV 2 RNA, QL, SOTO+p robe, nose covid-19, rapid NEGATI VE negati ve Covid -19 assay perfo rmed on the ID now instr ument is a rapid molec ular in vitro diagn ostic test utili zing an isoth ermal nucle ic acid ampli ficat ion techn ology inten ded for the quali tativ e detec tion of nucle ic acid from SARS- CoV-2 in direc t anter ior nasal or nasop haryn geal swab speci mens from indiv idual s who are suspe cted of COVID -19 by their healt hcare provi donavon withi n the first seven days of the onset of sympt oms. Not Available [facility] [address] [place] [address], [address], 12/12/2023 17:37:44 12/20/19 24 12/20/2023 SARS CoV 2 RNA, QL, SOTO+p robe, nose covid-19, rapid POSITI VE negati ve abnormal Covid -19 assay perfo rmed on the ID now instr ument is a rapid molec ular in vitro diagn ostic test utili zing an isoth ermal nucle ic acid ampli ficat ion techn ology inten ded for the quali tativ e detec tion of nucle ic acid from SARS- CoV-2 in direc t anter ior nasal or nasop haryn geal swab speci mens from indiv idual s who are suspe cted of COVID -19 by their healt hcare provi donavon withi n the first seven days of the onset of sympt oms. Not Available [facility] [address] [place] [address], [address], 12/20/2023 11:42:11 01/15/20 24 01/15/2024 hemog lobin A1C, finge rstic k fingerstick A1C endo Not Available [facility] [address] [place] [address], [address], 01/15/2024 17:25:33 01/15/20 24 01/15/2024 hemog lobin A1C, finge rstic k hemoglobin A1C, finger 6.7 %_A1C 4.3 - 5.6 high Not Available [facility] [address] [place] [address], [address], 01/15/2024 17:25:33 01/15/20 24 01/15/2024 hemog lobin A1C, finge rstic k fingerstick estimated [address] Not Available [facility] [address] [place] [address], [address], 01/15/2024 17:25:33 03/13/2003/09/2024 MAMMO , scree marj, digit al, bilat eral No observ ation record ed. [email or web address] [facility] Radiology Scheduling [address] [place], [address], 03/13/2024 17:34:10 03/17/20 24 07/26/2023 imagi ng/di agnos tic resul t No observ ation record ed. [email or web address] Not Available 21:49:06 03/17/2010/21/2023 imagi ng/di agnos tic resul t No observ ation record ed. [email or web address] Not Available 21:49:12 Result Notes None recorded. Problems Name Problem SNOMED Code Status Onset Date Resolution Date Notes Provider Name and Address Organization Details Recorded Time Hypertens isa disorder 12377918 Active 2023 Hetal Aaron [facility] 4 22:16:37 COVID-19 321609043 Completed 202301/15/2024 Mariella Vásquez [facility] 4 16:51:53 Pain of right knee joint 65692291504 4100 Active 2023 Hyacinth Lopez MD [address] [place] [address], [phone] , [facility] 4 17:09:23 Type 2 diabetes mellitus 63063233 Active 2023 Hetal Aaron [facility] 4 22:16:45 Increased frequency of urination 074418507 Active 2023 Hyacinth Lopez MD [address] [place] [address], [phone] , [facility] 4 17:13:11 Sensorine ural hearing loss of bilateral ears 001591253 Active 2023 Hetal Rosenbaumt [facility] 4 22:16:48 Obstructi ve sleep apnea of adult 98556607651 03 Active 2023 [facility] 4 22:16:41 Attention deficit hyperacti vity disorder, predomina ntly inattenti ve type 22986732 Active 2023 [facility] 4 22:16:33 Fever 827636806 Completed 202301/15/2024 Mariella Vásquez [facility] 4 16:52:01 Problem Notes None recorded. Procedures Surgical History Date Name Laterality Status Provider Name and Address Organization Details Recorded Time colonoscopy completed [facility] 03/29/2024 22:17:29 Imaging Results Imaging Date Name Status LastModified by Organiz ation Details LastModified Time 03/09/2024 MAMMO, screening, digital, bilateral completed [email or web address] [facility] Radiology Scheduling [address] [facility], [place], [address], 03/13/2024 17:34:10 07/26/2023 imaging/diagno stic result completed Information not available 03/17/2024 21:49:06 10/21/2023 imaging/diagno stic result completed Information not available 03/17/2024 21:49:12 Procedure Notes None recorded. Medical Equipment None Reported. Allergies Allergen ID Allergen Name Allergen Category Reaction Reaction Severity Criticality Documentation Date Start Date Code Code System Note Provider Name and Address Organization Details Recorded Time [id number] d6566 Claritin medicatio n dizziness Not available Not available 06/19/2023200557 6 RxNorm React ion: Dizzi ness; Not Available Not Available Not Available [id number] c5399 rosuvasta tin calcium medicatio n myalgias (muscle pain) Not available Not available 06/17/20232020 89936 8 RxNorm React ion: Myalg ia; Not Available Not Available Not Available [id number] 35c0f [facility] medicatio n rash Not available Not available 06/17/20232005 91630 5 RxNorm React ion: Rash; Not Available Not Available Not Available Medications Name Sig Start Date Stop Date Status Note LastModified by Organization Details LastModified Time losartan 50 mg tablet TAKE 1 TABLET BY MOUTH EVERY DAY active Not Available Not Available No t Available methylpheni date 20 mg tablet TAKE 1 TABLET BY MOUTH EVERY DAY 12/19 completed Not Available Not Available Not Available prednisone 20 mg tablet TAKE 3 TABLETS BY MOUTH DAILY FOR 3 DAYS THEN TAKE 2 TABLETS BY MOUTH DAILY FOR 3 DAYS THEN TAKE 1 TABLET BY MOUTH DAILY FOR 3 DAYS 12/19 completed Not Available Not Available Not Available potassium chloride ER 10 mEq tablet,exte nded release TAKE 1 TABLET BY MOUTH EVERY DAY active Not Available Not Available No t Available doxycycline monohydrate 100 mg capsule TAKE 1 CAPSULE BY MOUTH TWICE DAILY FOR 10 DAYS 01/14 completed Not Available Not Available Not Available methylpheni date ER 20 mg tablet,exte nded release TAKE 1 TABLET BY MOUTH DAILY 12/11 completed Not Available Not Available Not Available oxybutynin chloride ER 5 mg tablet,exte nded release 24 hr TAKE 1 TABLET BY MOUTH EVERY DAY 03/30 completed Not Available Not Available Not Available hydrochloro thiazide 25 mg tablet TAKE 1 TABLET BY MOUTH DAILY 12/11 completed Not Available Not Available Not Available losartan 100 mg tablet TAKE 1 TABLET BY MOUTH EVERY DAY 01/14 completed Not Available Not Available Not Available tobramycin 0.3 %-dexametha sone 0.1 % eye drops,suspe nsion SHAKE LIQUID AND INSTILL 1 DROP IN LEFT EYE FOUR TIMES DAILY DIRECTED 12/11 completed Not Available Not Available Not Available atomoxetine 40 mg capsule TAKE 1 CAPSULE BY MOUTH EVERY DAY active Not Available Not Available No t Available Myrbetriq 50 mg tablet,exte nded release TAKE 1 TABLET BY MOUTH ONCE DAILY active Not Available Not Available No t Available Jardiance 10 mg tablet Take 1 tablet every day by oral route. 2023 active Not Available Not Available Not Avai lable Paxlovid 300 mg (150 mg x 2)-100 mg tablets in a dose pack TK 2 NIRMATREL VIR TS AND 1 RITONAVIR T TOGETHER PO BID FOR 5 DAYS 01/14 completed Not Available Not Available Not Available Vitals Date Recorded Body weight Oxygen saturation Oxygen saturation in Arterial blood by Pulse oximetry Heart rate Body temperature Systolic blood pressure Diastolic blood pressure Provider Name and Address Organization Details Last Updated DateTime 4 993159. 72 g 97 % 97 % 129 /min 99.2 [degF] 126 mm[Hg] 82 mm[Hg] [facility] 4 17:27:32 Date Recorded Body weight Body temperature Heart rate Systolic blood pressure Diastolic blood pressure Provider Name and Address Organization Details Last Updated DateTime 12/20/2023 552743. 93 g 99.1 [degF] 68 /min 132 mm[Hg] 64 mm[Hg] Monica Kaur [facility] 4 10:03:53 Date Recorded Body height Body mass index (BMI) Body weight Body temperature Heart rate Oxygen saturation Oxygen saturation in Arterial blood by Pulse oximetry Systolic blood pressure Diastolic blood pressure Provider Name and Address Organization Details Last Updated DateTime 4 182.88 cm 41 kg/m2 008471. 9 g 97.3 [degF] 98 /min 100 % 100 % 132 mm[Hg] 74 mm[Hg] Mariella Vásquez [facility] 4 16:50:46 Date Recorded Body height Body mass index (BMI) Body weight Body temperature Oxygen saturation Oxygen saturation in Arterial blood by Pulse oximetry Heart rate Systolic blood pressure Diastolic blood pressure Provider Name and Address Organization Details Last Updated DateTime 4 182.88 cm 42.9 kg/m2 850246. 91 g 96.8 [degF] 97 % 97 % 103 /min 122 mm[Hg] 68 mm[Hg] [facility] 4 16:45:29 Social History Question Answer Notes LastModified by Organizat ion Details LastModified Time Do You Have An Advance Directive? No [email or web address] Information not available 12/13/2023 What Is Your Level Of Alcohol Consumption? None [email or web address] Information not available 12/13/2023 What Is Your Level Of Caffeine Consumption? Occasional [email or web address] Information not available 12/13/2023 Are You Currently Employed? 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 Less Than 1 Time Per Week [email or web address] Information not available 12/13/2023 Do You Have A Medical Power Of Healthcare Interpreter? Yes [email or web address] Information not available 12/13/2023 What Was The Date Of Your Most Recent Tobacco Screening? 12/20/2023 [email or web address] Information not available 12/13/2023 What Is Your Relationship Status? Single [email or web address] Information not available 12/13/2023 Do You Use Any Illicit Or Recreational Drugs? No [email or web address] Information not available 12/13/2023 Sex: Unknown Functional Status Question Answer Note LastModified by Organizat ion Details LastModified Time What is your exercise level? Occasional [email or web address] Information not available 12/13/2023 Mental Status None recorded. Family History Relationship Description Onset Age of this Age Resolved Age Notes LastModified by Organization Details LastModified Time Sister Arthritis [email or web address] Not available 12/13/2023 10:22:38 Sister Diabetes mellitus [email or web address] Not available 2023 10:22:38 Sister Hypertensive disorder [email or web address] Not available 2023 10:22:38 Sister Hypercholest erolemia [email or web address] Not available 2023 10:22:38 Mother Diabetes mellitus [email or web address] Not available 2023 10:22:39 Father Diabetes mellitus [email or web address] Not available 2023 10:22:39 Father Hypertensive disorder [email or web address] Not available 2023 10:22:39 Notes:Sister has arthritis S ister has diabetes Sister has high blood pressure Sister has high cholesterol Sister has histoplasmosis Medical History Condition Response Diabetes Y Anxiety Disorder N Bleeding Disorder N Attention-deficit Hyperactivity Disorder Y High Blood Pressure Y Arthritis N Hyperlipidemia N Cancer N Stroke N Thyroid Problems N Asthma N Depression Y COPD N Anemia N Seizures N Heart Disease N Fibromyalgia N Osteoporosis N Kidney Disease N Gynecological HistoryNo gynecological history recorded. Obstetrics History GPAL:G 0 P 0 0 0 0 Immunizations Vaccine Type Date Status Note Provider Nam e and Address Organization Details Recorded Time MMR 4 completed [facility] 12/20/2023 10:01:13 COVID-19, mRNA, LNP-S, PF, 30 mcg/0.3 mL dose 1 completed [facility] 12/20/2023 10:01:13 COVID-19, mRNA, LNP-S, PF, 30 mcg/0.3 mL dose 1 completed [facility] 12/20/2023 10:01:13 DTP 8 completed [facility] 12/20/2023 10:01:13 DTP 2 completed [facility] 12/20/2023 10:01:13 Influenza, split virus, trivalent, preservative 0 completed [facility] 12/20/2023 10:01:13 Td (adult), 2 Lf tetanus toxoid, preservative free, adsorbed 3 completed [facility] 12/20/2023 10:01:13 Td (adult), 2 Lf tetanus toxoid, preservative free, adsorbed 7 completed [facility] 12/20/2023 10:01:13 Td (adult), 2 Lf tetanus toxoid, preservative free, adsorbed 8 completed [facility] 12/20/2023 10:01:13 Hep B, adolescent or pediatric 4 completed [facility] 12/20/2023 10:01:13 Hep B, adolescent or pediatric 3 completed [facility] 12/20/2023 10:01:13 Past Encounters Encounter ID Performer Location Encounter Start Date Encounter Closed Date Diagnosis/Indication Diagnosis SNOMED-CT Code Diagnosis ICD10 Code [id number] Hyacinth Lopez MD [facility] [address] 12/12/2023 17:09:10 12/16/2023 04:11:36 Acute sinusitis 03616158 J01.90 Attention deficit hyperactivity disorder, predominantly inattentive type 92356732 F90.0 [id number] MD [facility] [place] [address] 12/20/2023 09:57:37 12/23/2023 04:55:59 Hypertensive disorder 74551730 I10 COVID-19 757805658 U07.1 [id number] Hyacinth Lopez MD [facility] ([place] [address] 01/15/2024 16:23:19 01/15/2024 17:51:42 Pain of right knee joint 3437803643 47709 M25.561 Type 2 bayron betes mellitus 65575506 E11.9 Increased frequency of urination 655186050 R35.0 Hypertensive disorder 38 681799 I10 Screening mammography of bilateral breasts 1677189706 95245 Z12.31 Attention deficit hyperactivity disorder, predominantly inattentive type 10744186 F90.0 [id number] Marina Hernandez [facility] 4th Audiology [address] [facility] [place] [address] 03/24/2024 16:33:48 03/24/2024 17:28:55 Sensorineural hearing loss of bilateral ears 059266158 H90.3 [id number] MD João [facility] [address] 03/30/2024 16:34:32 03/30/2024 17:37:16 Attention deficit hyperactivity disorder, predominantly inattentive type 42599295 F90.0 Type 2 bayron betes mellitus 82155896 E11.9 Pain of ri ght knee joint 3632192685 65463 M25.561 Health Concerns Section Related Observation LastModified by Organization Detai ls LastModified Time None Recorded Concern Status LastModified by Organization Details LastModified Time None Recorded Advance Directives Directive N: Payers Encounter Date Sequence Insurance Name Policy Number Policy Lezama Covered Member ID Lezama Member ID Guarantor Name 12/12/2023 1 [place] [id number] Kaci Roberts [id number] Kaci Andre Alejandra 12/20/2023 1 [place] [id number] Kaci Roberts [id number] Kaci Roberts 01/15/2024 1 [place] [id number] Kaci Roberts [id number] Kaci Andre Roberts 03/24/2024 1 [place] [id number] Kaci Roberts [id number] Kaci Roberts 03/30/2024 1 [place] [id number] Kaci Roberts [id number] Kaci Roberts Notes Date Note Type Note Provider Name and Address Organization Details Recorded Time 4 text/html Kaci Mckinney a 58 year oldfemalepresenting for care. 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 Since Saturday she has had low-grade fevers of 100. Her face feels like it is burning. She has been chilled and sleeping for days. She wonders if she might have a sinus infection. She has ADHD. She continues on Strattera with good results. She is due for refill on that medicine. Hyacinth Lopez MD [address] [place] [address], [address], [facility] 12/15/2023 22:09:40 4 text/html Kaci Mckinney a 58 year oldfemalepresenting for care. She was scheduled for a 6-month check-in on her chronic medications. She is on medication for ADD on medication for hypertension. However, she came in being sick. She has had a fever for the last 2 to 3 days. She has had generalized fatigue and malaise and started with a sore throat. She has been coughing. She is having some rapid heart rate. Hyacinth Lopez MD [address] [place], [address], [facility] 12/22/2023 13:57:40 4 text/html Kaci Mckinney a 59 year old who is here today for 3-month follow-up on medication manage for her ADHD. She is back in school for the semester and she says the children really poor behaviors. It has been very stressful even just for 2 weeks. She feels that the Strattera works very well for her and wants to continue this medication. She has gained 40 pounds since I saw her in June. She had been exercising and eating right and then started stress eating. In September she fell while looking at the [employer] and fractured her right ankle she wore a boot and a brace but did not require surgery. When she fell she injured her right knee as well. Now it is painful especially in the medial aspect it hurts to walk on it. She does not know if she hurt her knee or if is just strained from walking with a boot. She has urinary incontinence. She says when she gets up in the middle of the night she cannot make it to the bathroom. This has been getting worse. She denies any burning or pain. She has hypertension. She is on losartan. She has not taken it for the last 3 to 4 weeks because she lost her bottle. Her blood pressure looks good today. Because of this, we are going to resume losartan. We had her on an ARB because she has a history of type 2 diabetes. When she lost all of her weight. And she was no longer on diabetes medicine. Will check a hemoglobin A1c today for follow-up on this. Hyacinth Lopez MD [address] [place], [address], [facility] 01/15/2024 23:24:47 4 text/html Kaci Mckinney a 59 year oldfemalepresenting for care. She is here for 3-month follow-up on medication management. She continues on Strattera for ADHD and she feels it is helping her concentrate and stay on task. She has had no side effects from medicine. She had been working on weight loss and exercise related to her diabetes. She had lost several pounds but then has gained several of them back. She is not currently exercising. She does have a knee problem. She is seeing a surgeon for this. She says he was not able to view the images that she took on a CD to his office. This was Dr. Dela Cruz. I reviewed the x-rays with her. It showed that she had preserved joint space between the femur and the tibia however there was a lot of arthritis behind the kneecap and bone spurs which are taking the knee, off alignment and out of the groove. I told her that she probably is going to have to have knee replacement surgery in the future based on what this looks like. She did have an injection and participate in some therapy and this did help with her knee pain. Hyacinth Lopez MD [address], [place], [address], [place] [facility] 03/31/2024 21:17:02 OBGyn Episode No OBEpisode recorded.
--- OUTSIDE RECORDS SUMMARY | 2024-05-07 22:00 | XMS_ITS | Continuity of Care Document ---
Author Organization [facility] ([place]) Address [address] [place] [address] Care Team Providers Care Applications Sales Representative Name Role Phone HYACINTH MOY Primary Care Provider [phone] MITCHEL DELA CRUZ Urologist MONIKA RICHARDS OTHER Assessment Encounter Date Assessment Date Assessment LastModified by Organization Details LastModified Time 03/30/2024 03/30/2024 1. ADHD. Continue Strattera which [...] plan. Total amount of time 20 minutes [email or web address] Not available 03/31/2024 21:16:47 Plan of Treatment Reminders Order Date Submit Date Provider Last Modified By Organization Details Last Modified Time Details Appointments Establis [facility] Patient 15.EST 2024 10:30A M Dr. Hyacinth Lopez Not available Not available Not available Carlos [facility] Patient 30.EST 2024 10:30A M Vero Lopes Not available Not available Not available Lab None recorded . Referral None recorded . Procedures None recorded . Surgeries None recorded . Imaging None recorded . Medication Orders Jardianc e 10 mg tablet 2023 024 [id number], [address], [place], [id number], 03/30/2024 16:59:42 Patient TargetsNo targets recorded. Patient InstructionsNo instructions recorded. Reason for Referral None Reported. Results Created Date Observation Date Name Description Value Unit Range Abnormal Flag Note LastModifiedBy Organization Detail LastModifiedTime 03/13/2003/09/2024 MAMMO , scree marj, digit al, bilat eral No observ ation record ed. [email or web address] [facility] Radiology Scheduling [address] [place], [address], 03/13/2024 17:34:10 03/17/20 24 07/26/2023 imagi ng/di agnos tic resul t No observ ation record ed. [email or web address] Not Available 21:49:06 03/17/20 24 10/21/2023 imagi ng/di agnos tic resul t No observ ation record ed. [email or web address] Not Available 21:49:12 Result Notes None recorded. Problems Name Problem SNOMED Code Status Onset Date Resolution Date Notes Provider Name and Address Organization Details Recorded Time Hypertens isa disorder 93177702 Active 2023 Hetal soria [facility] 22:16:37 COVID-19 472966464 Com[facility]2301[facility]15/[facility] 16:51:53 Pain of right knee joint 26780243328 4100 Active 2023 Hyacinth Lopez MD [address] [place] [address], [address] , [facility] 4 17:09:23 Type 2 diabetes mellitus 63664020 Active 2023 [facility] 4 22:16:45 Increased frequency of urination 759997204 Active 2023 Hyacinth Lopez MD [address] [place] [address], [address] , [facility] 4 17:13:11 Sensorine ural hearing loss of bilateral ears 428415999 Active 2023 [facility] 4 22:16:48 Obstructi ve sleep apnea of adult 17046462872 03 Active 2023 [facility] 4 22:16:41 Attention deficit hyperacti vity disorder, predomina ntly inattenti ve type 27881473 Active 2023 [facility] 4 22:16:33 Fever 955081907 Completed 202301/15/[address] [facility] 16:52:01 Problem Notes None recorded. Procedures Surgical History Date Name Laterality Status Provider Name and Address Organization Details Recorded Time colonoscopy completed [facility] 03/29/2024 22:17:29 Imaging Results None recorded. Procedure Notes None recorded. Medical Equipment None Reported. Allergies Allergen ID Allergen Name Allergen Category Reaction Reaction Severity Criticality Documentation Date Start Date Code Code System Note Provider Name and Address Organization Details Recorded Time 4sh60826q 306y8tj8i c6jtb0rp6 d6566 Claritin medicatio n dizziness Not available Not available 06/19/2023200557 6 RxNorm React ion: Dizzi ness; Not Available Not Available Not Available 8686d09a0 6317qg2ea [id number] c5399 rosuvasta tin calcium medicatio n myalgias (muscle pain) Not available Not available 06/17/20232020 48511 8 RxNorm React ion: Myalg ia; Not Available Not Available Not Available [id number] 35c0f [facility]ly [facility] medicatio n rash Not available Not available 06/17/20232005 59346 5 RxNorm React ion: Rash; Not Available [...] Available Not Available Vitals Date Recorded Body height Body mass index (BMI) Body weight Body temperature Oxygen saturation Oxygen saturation in Arterial blood by Pulse oximetry Heart rate Systolic blood pressure Diastolic blood pressure Provider Name and Address Organization Details Last Updated DateTime 4 182.88 cm 42.9 kg/m2 765873. 91 g 96.8 [degF] 97 % 97 % 103 /min 122 mm[Hg] 68 mm[Hg] Luci Goddard [facility] 4 16:45:29 Social History Question Answer Notes LastModified by Astonish Results ion Details LastModified Time Do You Have [...] Do You Have A Medical Power Of Primary Teacher? Yes [email or web address] Information not available 12/13/2023 What Was The Date Of Your Most Recent Tobacco Screening? 12/20/2023 [email or web address] Information not available 12/13/2023 What Is Your Relationship Status? Single [email or web address] Information not available 12/13/2023 Do You Use Any Illicit Or Recreational Drugs? No [email or web address] Information not available 12/13/2023 Sex: Unknown Functional Status Question Answer Note LastModified by [employer] ion Details LastModified Time What is your [...] Y Arthritis N Hyperlipidemia N Cancer N Thyroid Problems N Stroke N COPD N Depression Y Asthma N Seizures N Anemia N Heart Disease N Fibromyalgia N Osteoporosis N Kidney Disease N Gynecological HistoryNo gynecological history recorded. Obstetrics History GPAL:G 0 P 0 0 0 0 Immunizations Vaccine Type Date Status Note Provider Nam e and Address Organization Details Recorded Time MMR 4 completed [facility] 12/20/2023 10:01:13 COVID-19, mRNA, LNP-S, PF, 30 mcg/0.3 mL dose 1 completed [facility] 12/20/2023 10:01:13 COVID-19, mRNA, LNP-S, PF, 30 mcg/0.3 mL dose 1 completed [facility] 12/20/2023 10:01:13 DTP 8 completed [facility] 12/20/2023 10:01:13 DTP 2 completed [facility] 12/20/2023 10:01:13 Influenza, split virus, trivalent, preservative 0 completed [facility] 12/20/2023 10:01:13 Td (adult), 2 Lf tetanus toxoid, preservative free, adsorbed 3 completed Monica Vincent null, [facility] 12/20/2023 10:01:13 Td (adult), 2 Lf tetanus toxoid, preservative free, adsorbed 7 completed Monica Vincent null, [facility] 12/20/2023 10:01:13 Td (adult), 2 Lf tetanus toxoid, preservative free, adsorbed 8 completed Monica Vincent null, [facility] 12/20/2023 10:01:13 Hep B, adolescent or pediatric 4 completed Monica Vincent null, [facility] 12/20/2023 10:01:13 Hep B, adolescent or pediatric 3 completed Monica Vincent null, [facility] 12/20/2023 10:01:13 Past Encounters Encounter ID Performer Location Encounter Start Date Encounter Closed Date Diagnosis/Indication Diagnosis SNOMED-CT Code Diagnosis ICD10 Code [id number] Vero Lopes, AuD [facility] 4th Audiology [address] [place] [address] 03/24/2024 16:33:48 03/24/2024 17:28:55 Sensorineural hearing loss of bilateral ears 296154989 H90.3 [id number] Hyac[facility] [address] [place] [address] 03/30/2024 16:34:32 03/30/2024 17:37:16 Attention deficit hyperactivity disorder, predominantly inattentive type 96637361 F90.0 Type 2 bayron betes mellitus 54542077 E11.9 Pain of ri ght knee joint 0058714440 69050 M25.561 Health Concerns Section Related Observation LastModified by Organization Detai ls LastModified Time None Recorded Concern Status LastModified by Organization Details LastModified Time None Recorded Payers Encounter Date Sequence Insurance Name Policy Number Policy Lezama Covered Member ID Lezama Member ID Guarantor Name 03/30/2024 1 [place] [id number] Kaci Roberts [id number] Kaci Roberts Notes Date Note Type Note Provider Name and Address Organization Details Recorded Time 4 text/html Kaci Robertsis a 59 year oldfemalepresenting for care. She [...] knee pain. Hyacinth Lopez MD [address] [facility], [place], [address], [facility] 03/31/2024 21:17:02 OBGyn Episode No OBEpisode recorded.
--- OUTSIDE RECORDS SUMMARY | 2024-05-07 22:00 | XMS_ITS | Continuity of Care Document ---
Author Organization [facility], [facility] 4th Audiology Address [address] [place] [address] Care Team Providers Care Ruling Machine Set Up Operator Name Role Phone HYACINTH MOY Primary Care Provider [phone] MITCHEL DELA CRUZ Urologist MONIKA RICHARDS OTHER Assessment Encounter Date Assessment Date Assessment LastModified by Organization Details LastModified Time 03/24/2024 03/24/2024 Ms. Roberts was seen for her 6-month hearing aid check. She wears 2 Phonak [employer]udeo Lumity rechargeable hearing devices. I removed 3.3 uL of moisture from both hearing aids. I changed her cap domes, wax traps, and retention lines. Rec: 1. Return in six months for her next check. 2. Both hearing aids are currently under warranty. matt Not available 03/24/2024 17:37:43 Plan of Treatment Reminders Order Date Submit Date Provider Last Modified By Organization Details Last Modified Time Details Appointments [facility] Patient 15.EST 2024 10:30A M Dr. Hyacinth Lopez Not available Not available Not available [facility] Patient 30.EST 2024 10:30A M Vero Lopes Not available Not available Not available Lab None recorded . Referral None recorded . Procedures None recorded . Surgeries None recorded . Imaging None recorded . Medication Orders None recorded . Patient TargetsNo targets recorded. Patient InstructionsNo instructions recorded. Reason for Referral None Reported. Results Created Date Observation Date Name Description Value Unit Range Abnormal Flag Note LastModifiedBy Organization Detail LastModifiedTime 03/13/2003/09/2024 MAMMO , scree marj, digit al, bilat eral No observ ation record ed. [email or web address] [facility] Radiology Scheduling [address] [facility], [place], [address], 03/13/2024 17:34:10 03/17/20 24 07/26/2023 imagi ng/di [...] Organization Details Recorded Time Hypertens isa disorder 97246610 Active 2023 Hetal [facility] 4 22:16:37 COVID-19 367926349 Completed 202301/15/2024 Mariella Vásquez [facility] 4 16:51:53 Pain of right knee joint 59056627183 4100 Active 2023 Hyacinth Lopez MD [address] [place] [address], [address] , [facility] 4 17:09:23 Type 2 diabetes mellitus 72218166 Active 2023 Hetal [facility] 4 22:16:45 Increased frequency of urination 324582305 Active 2023 Hyacinth Lopez MD [address] [place] [address], [address] , [facility] 4 17:13:11 Sensorine ural hearing loss of bilateral ears 220917885 Active 2023 Hetal [facility] 4 22:16:48 Obstructi ve sleep apnea of adult 20181888111 03 Active 2023 [facility] 4 22:16:41 Attention deficit hyperacti vity disorder, predomina ntly inattenti ve type 03747025 Active 2023 [facility] 4 22:16:33 Fever 137926049 Completed 202301/15/2024 Mariella Vásquez [facility] 16:52:01 Problem Notes None recorded. Procedures Surgical History Date Name Laterality Status Provider Name and Address Organization Details Recorded Time colonoscopy completed [facility] 03/29/2024 22:17:29 Imaging Results None recorded. Procedure Notes None recorded. Medical Equipment None Reported. Allergies Allergen ID Allergen Name Allergen Category Reaction Reaction Severity Criticality Documentation Date Start Date Code Code System Note Provider Name and Address Organization Details Recorded Time 0du15603d 390k2pp5o [id number] d6566 Claritin medicatio n dizziness Not available Not available 06/19/2023200557 6 RxNorm React ion: Dizzi ness; Not Available Not Available Not Available 3373s93t8 1153vw9ul r1vb7oq37 c5399 rosuvasta tin calcium medicatio n myalgias (muscle pain) Not available Not available 06/17/20232020 28156 8 RxNorm React ion: Myalg ia; Not Available Not Available Not Available [id number] [id number] 35c0f Ceclor medicatio n rash Not available Not available 06/17/2023200563 5 RxNorm React ion: Rash; Not Available [...] Not Available Not Available Not Available Vitals None Recorded Social History Question Answer Notes LastModified by [...] Do You Have A Medical Power Of Power Wood Sawyer? Yes [email or web address] Information not available 12/13/2023 What [...] Sister has histoplasmosis Medical History Condition Response Attention-deficit Hyperactivity Disorder Y High Blood Pressure Y Thyroid Problems N COPD N Depression Y Anemia N Diabetes Y Anxiety Disorder N Bleeding Disorder N Arthritis N Hyperlipidemia N Cancer N Stroke N Asthma N Seizures N Heart Disease N Fibromyalgia N Osteoporosis N Kidney Disease N Gynecological HistoryNo gynecological history recorded. Obstetrics History GPAL:G 0 P 0 0 0 0 Immunizations Vaccine Type Date Status Note Provider Nam e and Address Organization Details Recorded Time MMR 4 completed [facility] 12/20/2023 10:01:13 COVID-19, mRNA, LNP-S, PF, 30 mcg/0.3 mL dose 1 completed [facility] 10:01:13 COVID-19, mRNA, LNP-S, PF, 30 mcg/0.3 mL dose 1 completed Monica Vincent null, [facility] 12/20/2023 10:01:13 DTP 8 completed [facility] 10:01:13 DTP 2 completed Monica Vincent [facility] 12/20/2023 10:01:13 Influenza, split virus, trivalent, preservative 0 completed Monica [facility] 12/20/2023 10:01:13 Td (adult), 2 Lf tetanus toxoid, preservative free, adsorbed 3 completed Monica Vincent [facility] 12/20/2023 10:01:13 Td (adult), 2 Lf tetanus toxoid, preservative free, adsorbed 7 completed Monica Vincent [facility] 12/20/2023 10:01:13 Td (adult), 2 Lf tetanus toxoid, preservative free, adsorbed 8 completed Monica Vincent [facility] 12/20/2023 10:01:13 Hep B, adolescent or pediatric 4 completed Monica Vincent [facility] 12/20/2023 10:01:13 Hep B, adolescent or pediatric 3 completed Monica Vincent [facility] 12/20/2023 10:01:13 Past Encounters Encounter ID Performer Location Encounter Start Date Encounter Closed Date Diagnosis/Indication Diagnosis SNOMED-CT Code Diagnosis ICD10 Code [id number] Vero Lopes, Marina [facility] 4th Audiology [address] [place] [address] 03/24/2024 16:33:48 03/24/2024 17:28:55 Sensorineural hearing loss of bilateral ears 872211233 H90.3 Health Concerns Section Related Observation LastModified by Organization Detai ls LastModified Time None Recorded Concern Status LastModified by Organization Details LastModified Time None Recorded Payers Encounter Date Sequence Insurance Name Policy Number Policy Lezama Covered Member ID Lezama Member ID Guarantor Name 03/24/2024 1 [place] [id number] Kaci Roberts [id number] Kaci Roberts OBGyn Episode No OBEpisode recorded.
== END 2024-05-03 12:16 | disposition home or self-care (01) ==
PROVIDERS: Emergency Provider Emergency Medicine; PCP Internal Medicine
DX: S80.02XA Contusion of left knee, initial encounter (principal); I10 Essential (primary) hypertension; E11.9 Type 2 diabetes mellitus without complications; Z79.899 Other long term (current) drug therapy; W19.XXXA Unspecified fall, initial encounter
CPT/HCPCS: 73562; 99283; A9270